=== PATIENT | male | born 1970 | race Caucasian/White ===

== ENCOUNTER 2020-03-22 04:15 | Emergency (ER) | payer OTHER, SELFPAY ==
[2020-03-22] VITALS (21 sets, daily range): BP systolic 112–136; BP diastolic 72–95; PULSE 73–79; RESP 16; TEMP 36.5; O2SAT 97–100; BMI 26.6
--- NOTE | 2020-03-22 04:38 | XRR_ITS ---
PROCEDURE INFORMATION: Exam: XR Chest, 1 View Exam date and time: 03/22/2020 4:43 AM Age: 50 years old Clinical indication: Other: Facial/arm tingling; Patient HX: Onset of right facial and bilateral upper extremity tingling this a. M. ; Additional info: Dizzy TECHNIQUE: Imaging protocol: XR of the chest Views: 1 view. COMPARISON: CR Chest 1 [place] [id number] 09/20/2017 1:06 PM FINDINGS: Lungs: Lungs are clear. Central interstitial markings are mildly prominent, similar to the findings in 2017. Pleural space: There is no pleural effusion or pneumothorax. Heart/Mediastinum: Cardiomediastinal contours are unremarkable. Bones/joints: Bones are unremarkable. XR/XR chest 1V portable [id number] IMPRESSION: No pathologic findings.
--- NOTE | 2020-03-22 04:38 | CTR_ITS ---
PROCEDURE INFORMATION: Exam: CT Head Without Contrast Exam date and time: 03/22/2020 4:43 AM Age: 50 years old Clinical indication: Weakness, extremity and weakness, facial; Patient HX: Onset of right sided facial and bilateral upper extremity tingling this a. M. ; Additional info: Symptoms of acute stroke TECHNIQUE: Imaging protocol: Computed tomography of the head without contrast. Total DLP: 787.91 mGy-cm Radiation optimization: All CT scans at this facility use at least one of these dose optimization techniques: automated exposure control; mA and/or kV adjustment per patient size (includes targeted exams where dose is matched to clinical indication); or iterative reconstruction. COMPARISON: No relevant prior studies available. FINDINGS: Brain: The brain is unremarkable. There is no mass effect or significant white matter disease. There is no acute intracranial hemorrhage. Ventricles: There is no significant ventricular dilation. The basal cisterns are unremarkable. Bones/joints: The calvarium is intact. Sinuses: The paranasal sinuses are clear. Mastoid air cells: The mastoid air cells are clear. Soft tissues: The visible extracranial soft tissues are unremarkable. CT/CT head wo con* [id number] IMPRESSION: No acute findings. Radiation Dose CTDIVOL = (mGy): DLP = 787.91 (mGy-cm)
--- NOTE | 2020-03-22 04:38 | ECG_ITS ---
Measurements Intervals [facility] Rate: 78 P: 69 NV: 190 QRS: 63 QRSD: 97 T: 55 QT: 360 QTc: 411 SINUS RHYTHM Compared to ECG 09/20/2017 16:07:43 No significant changes Electronically Signed On 03-22-2020 14:59:41 CDT by Bonnie Melendrez M.D. [email or web address]
--- NOTE | 2020-03-22 04:40 | ED_ITS ---
Documented by User: Didier Miguel DO 03/22/20 06:08 HPI - Neuro Symptoms/Deficit General: Chief Complaint: Neuro Symptoms/Deficit Stated Complaint: Face tingling/arm pain Time Seen by Provider: 03/22/20 04:30 History of Present Illness: HPI Narrative: 50-year-old healthy male presents with a 1 day history of paresthesias. Yesterday, he noted a tingling sensation to his bilateral face, and bilateral upper extremities. These seem to improve yesterday evening. He awoke fine this morning, and on his way to work, he began to get similar symptoms to the right side of his face and upper extremities. He is not weak. There is no language problem or deficit. There is no slurring of the speech. There is no vision change. He denies significant headache. Onset (ago): day(s) (1) Location: right face and right arm History of same: Yes Severity: mild Quality: tingling Relieving factors: none Exacerbating factors: none Context: sudden onset On Anticoagulants: No Associated symptoms: Reports vertigo and vomiting; Deny chest pain, fevers/chills, headache(s) or short of breath Review of Systems Const: Denies: fever or chills Eyes: Denies: change in vision or blurry vision ENMT: Denies: painful swallowing, swelling of lips/tongue or Change in hearing Card: Denies: chest pain Resp: Denies: shortness of breath, productive cough, non-productive cough or wheezing GI: Reports: vomiting : Denies: difficulty urinating or blood in urine Musc: Denies: neck pain, back pain, redness or joint warmth Skin/Breast: Denies: rash, itching or redness Neuro: Reports: vertigo; Denies: headache Psych: Denies: anxiety, visual hallucinations or auditory hallucinations PFSH ED PFSH: Social History Smoking and tobacco status: current every day smoker NIH stroke score NIHSS: Level Of Consciousness - 1a: 0 Level Of Consciousness Questions - 1b: Both Correct Level Of Consciousness Commands - 1c: Both Correct Best Gaze - 2: Normal Visual Wood - 3: No Visual Loss Facial Palsy - 4: Normal Motor Arm Right - 5: No Drift Motor Arm Left - 5: No Drift Motor Leg Right - 6: No Drift Motor Leg Left - 6: No Drift Limb Ataxia - 7: Absent Sensory - 8: Normal Best Language - 9: No Aphasia Dysarthia - 10: Normal Extinction And Inattention - 11: 0 Score: Total Score: 0 Physical Exam Const: COMMON NORMALS: oriented x3 GENERAL APPEARANCE: well developed ORIENTATION/CONSCIOUSNESS: Yes oriented to person, Yes oriented to place and Yes oriented to time HENMT: COMMON NORMALS: normocephalic, external ears normal and external nose normal HEAD & SCALP: normocephalic; no scalp tenderness FACE & SINUS: normal facial exam NOSE: external nose normal and no nasal discharge EXTERNAL EAR: Yes external ears normal MOUTH: tongue normal TEETH & GINGIVA: no abnormal tooth and associated gingiva THROAT: posterior oropharynx normal; no peritonsillar mass Eye: COMMON NORMALS: PERRL, EOMs intact bilaterally and conjunctivae normal EYELID: eyelids normal CONJUNCTIVA: Yes conjunctivae normal PUPIL: Yes PERRL Neck/C-Spine: COMMON NORMALS: full ROM GENERAL: No tracheal deviation CERVICAL SPINE: Yes normal cervical lordosis and No cervical spine tenderness Chest: COMMONS NORMALS: inspection of chest normal CHEST: No tenderness Resp: COMMON NORMALS: clear to auscultation bilaterally EFFORT & INSPECTION: No tachypneic, No respiratory distress, No retractions, No uses accessory muscles and No tracheal deviation AUSCULTATION: clear to auscultation bilaterally, no rhonchi, no wheezes and lung sounds not diminished Cardio: COMMON NORMALS: regular rate and regular rhythm RATE: regular rate RHYTHM: regular rhythm HEART SOUNDS: no murmurs PERIPHERAL PULSES: radial pulses present GI: INSPECTION: No abdominal distension AUSCULTATION: No hyperactive bowel sounds and No hypoactive bowel sounds PALPATION: No guarding and No rigid PERCUSSION: no dullness to percussion and no tympanic to percussion : COMMON NORMALS: Yes no CVA tenderness BLADDER/KIDNEY EXAM: Yes no CVA tenderness Back/Pelvis: COMMON NORMALS: no CVA tenderness Neuro: COMMON NORMALS: oriented x3 SENSORIUM/ORIENTATION: Yes oriented to person, Yes oriented to place and Yes oriented to time CRANIAL NERVES: Yes CN normal except as noted COORDINATION/BALANCE: [id number] test normal and [id number] test normal SPEECH: speech normal GAIT: Yes normal gait SENSORY EXAM: Yes double simultaneous stimulation for sensation normal MOTOR EXAM: no pronator drift and muscle tone normal throughout COORDINATION: [id number] test normal and [id number] test normal Psych: COMMON NORMALS: mental status grossly normal Skin: COMMON NORMALS: no rashes or lesions noted GENERAL SKIN EXAM: no rashes or lesions noted Course ED course: 50-year-old male with paresthesias to the right side of the face and upper extremity. His sensation exam is actually normal, and equal to the other side objectively. His NIH stroke scale is 0. His head CT and labs are pending. Update, head CT is negative. Chest x-ray is negative. Labs are still pending. The patient will be checked out to Dr. Norris for follow-up on laboratory results. Vital Signs: Vital signs: Vital Signs Temperature 97.7 F 03/22/20 04:20 Pulse Rate 73 03/22/20 07:05 Respiratory Rate 16 03/22/20 07:05 Blood Pressure 112/72 03/22/20 07:05 Pulse Oximetry 99 03/22/20 07:05 MDM - Neuro Symptoms/Deficit Lab Data: Labs: Lab Results 03/22/20 03/22/20 03/22/20 Range/Units 04:51 04:51 04:51 WBC 10.8 H (4.0-10.0) 10^3/ uL RBC 5.47 H (4.1-5.3) 10^6/u L Hgb 17.0 H (11.7-16.6) g/dL Hct 51.7 (42.0-52.0) % MCV 94.5 H (80-94) fL MCH 31.1 (28.0-34.0) pg MCHC 32.9 (30.0-36.0) g/dL RDW 13.0 (12.1-15.1) % Plt Count 353 (130-400) 10^3/c mm MPV 10.6 H (7.4-10.4) fL Neut % (Auto) 65.5 % Lymph % (Auto) 25.5 % [place] % (Auto) 7.7 % Eos % (Auto) 0.6 % Baso % (Auto) 0.5 % Neut # (Auto) 7.1 (1.8-7.7) 10^3/u L Lymph # (Auto) 2.8 (0.8-4.8) 10^3/u L [place] # (Auto) 0.8 (0.2-0.9) 10^3/u L Eos # (Auto) 0.1 (0.0-0.8) 10^3/u L Baso # (Auto) 0.1 (0.0-0.1) 10^3/u L Nucleated RBC % (a uto) 0 % Nucleated RBCs # 0.0 /100WBC PT 12.20 (10.5-13.3) SECO NDS INR 0.88 (0.8-1.2) APTT 30.6 (23.9-36.7) SECO NDS Sodium 137 (136-145) mmol/L Potassium 4.5 (3.5-5.1) mmol/L Chloride 99 (98-107) mmol/L Carbon Dioxide 25 (22-29) mmol/L Anion Gap 17.5 (5-19) BUN 15 (6-20) mg/dL Creatinine 0.9 (0.7-1.2) mg/dL GFR Calculation 88.6 L (90-130) mL/min Glucose 125 H (65-115) mg/dL Calculated Osmolal ity 282 L (285-295) mOsm/k g Calcium 10.2 (8.5-10.5) mg/dL Total Bilirubin 0.4 (0.15-1.2) mg/dL AST 19 (0-40) U/L ALT 14 (0-41) U/L Alkaline Phosphata se 97 (40-130) IU/L Total Protein 8.2 (6.6-8.7) g/dL Albumin 4.6 (3.5-5.2) g/dL Globulin 3.6 (1.3-4.6) g/dL Vitamin B12 280 (232-1245) pg/mL Folate (4.5-32.2) ng/mL Urine Color (Yellow) Urine Appearance (CLEAR) Urine pH (5-7) Ur Specific Gravit y (1.005-1.030) Urine Protein (Negative) Urine Glucose (UA) (Normal) Urine Ketones (Negative) Urine Blood (Negative) Urine Nitrate (Negative) Urine Bilirubin (NEGATIVE) Urine Urobilinogen (Negative) mg/dL Ur Leukocyte Lakisha ase (Negative) Urine RBC (0-2) /hpf Urine WBC (0-5) /hpf Ur Squamous Epith Cells (0-5) Amorphous Sediment Urine Bacteria (NONE) Ethyl Alcohol < 10 (0-10) mg/dL 03/22/20 03/22/20 Range/Units 04:51 05:30 WBC (4.0-10.0) 10^3/ uL RBC (4.1-5.3) 10^6/u L Hgb (11.7-16.6) g/dL Hct (42.0-52.0) % MCV (80-94) fL MCH (28.0-34.0) pg MCHC (30.0-36.0) g/dL RDW (12.1-15.1) % Plt Count (130-400) 10^3/c mm MPV (7.4-10.4) fL Neut % (Auto) % Lymph % (Auto) % [place] % (Auto) % Eos % (Auto) % Baso % (Auto) % Neut # (Auto) (1.8-7.7) 10^3/u L Lymph # (Auto) (0.8-4.8) 10^3/u L [place] # (Auto) (0.2-0.9) 10^3/u L Eos # (Auto) (0.0-0.8) 10^3/u L Baso # (Auto) (0.0-0.1) 10^3/u L Nucleated RBC % (a uto) % Nucleated RBCs # /100WBC PT (10.5-13.3) SECO NDS INR (0.8-1.2) APTT (23.9-36.7) SECO NDS Sodium (136-145) mmol/L Potassium (3.5-5.1) mmol/L Chloride (98-107) mmol/L Carbon Dioxide (22-29) mmol/L Anion Gap (5-19) BUN (6-20) mg/dL Creatinine (0.7-1.2) mg/dL GFR Calculation (90-130) mL/min Glucose (65-115) mg/dL Calculated Osmolal ity (285-295) mOsm/k g Calcium (8.5-10.5) mg/dL Total Bilirubin (0.15-1.2) mg/dL AST (0-40) U/L ALT (0-41) U/L Alkaline Phosphata se (40-130) IU/L Total Protein (6.6-8.7) g/dL Albumin (3.5-5.2) g/dL Globulin (1.3-4.6) g/dL Vitamin B12 (232-1245) pg/mL Folate 7.0 (4.5-32.2) ng/mL Urine Color Yellow (Yellow) Urine Appearance Cloudy (CLEAR) Urine pH 9 H (5-7) Ur Specific Gravit y 1.015 (1.005-1.030) Urine Protein Neg (Negative) Urine Glucose (UA) Norm (Normal) Urine Ketones Negative (Negative) Urine Blood Neg (Negative) Urine Nitrate Negative (Negative) Urine Bilirubin Neg (NEGATIVE) Urine Urobilinogen 1 H (Negative) mg/dL Ur Leukocyte Lakisha ase Negative (Negative) Urine RBC None (0-2) /hpf Urine WBC None (0-5) /hpf Ur Squamous Epith Cells None (0-5) Amorphous Sediment 2+ Urine Bacteria Trace (NONE) Ethyl Alcohol (0-10) mg/dL Discharge Plan Discharge Patient Disposition: Home, Self-Care Clinical Impression: Transient cerebral ischemia Condition: Stable Prescriptions: New Aspir-81 81 mg tablet,delayed release (DR/EC) 81 mg PO DAILY Qty: 30 RF: 0 Discharge Orders: Discharge Order (Routine); Ordered 03/22/20 Ordered By: Jose Norris Referrals: Ludmila Mendoza, UNIT CONTROL CLERK-C [Primary Care Provider] - Discharge Diet: Usual diet Discharge Activity: Increase activity as tolerated Activity Restrictions/Additional Instructions: Follow-up with your doctor for further evaluation return if you have any further problems or change of symptoms or worsening. Discharge Date/Time: 03/22/20 07:05 Sign Out Sign Out Data: Patient Sign Out occurred on 03/22/20 at 06:18. Patient's care was discussed, and care was transferred from to Jose Norris DO. Coding Level of Care Code ED Hotel Front Office Manager for g Fwd Exam Comprehensive Documented by User: Jose Norris DO 03/24/20 07:30 HPI - Neuro Symptoms/Deficit General: Chief Complaint: Neuro Symptoms/Deficit Stated Complaint: Face tingling/arm pain Time Seen by Provider: 03/22/20 04:30 [facility] ED PFSH: Social History Smoking and tobacco status: current every day smoker Course ED course: Symptoms completely resolved at this point he is feeling better. His CT head is negative. We will go ahead and discharge the patient with as anusha and have him follow-up with his primary care doctor for further evaluation including more advanced imaging such as MRI echo or carotid. Vital Signs: Vital signs: Vital Signs Temperature 97.7 F 03/22/20 04:20 Pulse Rate 73 03/22/20 07:05 Respiratory Rate 16 03/22/20 07:05 Blood Pressure 112/72 03/22/20 07:05 Pulse Oximetry 99 03/22/20 07:05 MDM - Neuro Symptoms/Deficit Lab Data: Labs: Lab Results 03/22/20 03/22/20 03/22/20 Range/Units 04:51 04:51 04:51 WBC 10.8 H (4.0-10.0) 10^3/ uL RBC 5.47 H (4.1-5.3) 10^6/u L Hgb 17.0 H (11.7-16.6) g/dL Hct 51.7 (42.0-52.0) % MCV 94.5 H (80-94) fL MCH 31.1 (28.0-34.0) pg MCHC 32.9 (30.0-36.0) g/dL RDW 13.0 (12.1-15.1) % Plt Count 353 (130-400) 10^3/c mm MPV 10.6 H (7.4-10.4) fL Neut % (Auto) 65.5 % Lymph % (Auto) 25.5 % [place] % (Auto) 7.7 % Eos % (Auto) 0.6 % Baso % (Auto) 0.5 % Neut # (Auto) 7.1 (1.8-7.7) 10^3/u L Lymph # (Auto) 2.8 (0.8-4.8) 10^3/u L [place] # (Auto) 0.8 (0.2-0.9) 10^3/u L Eos # (Auto) 0.1 (0.0-0.8) 10^3/u L Baso # (Auto) 0.1 (0.0-0.1) 10^3/u L Nucleated RBC % (a uto) 0 % Nucleated RBCs # 0.0 /100WBC PT 12.20 (10.5-13.3) SECO NDS INR 0.88 (0.8-1.2) APTT 30.6 (23.9-36.7) SECO NDS Sodium 137 (136-145) mmol/L Potassium 4.5 (3.5-5.1) mmol/L Chloride 99 (98-107) mmol/L Carbon Dioxide 25 (22-29) mmol/L Anion Gap 17.5 (5-19) BUN 15 (6-20) mg/dL Creatinine 0.9 (0.7-1.2) mg/dL GFR Calculation 88.6 L (90-130) mL/min Glucose 125 H (65-115) mg/dL Calculated Osmolal ity 282 L (285-295) mOsm/k g Calcium 10.2 (8.5-10.5) mg/dL Total Bilirubin 0.4 (0.15-1.2) mg/dL AST 19 (0-40) U/L ALT 14 (0-41) U/L Alkaline Phosphata se 97 (40-130) IU/L Total Protein 8.2 (6.6-8.7) g/dL Albumin 4.6 (3.5-5.2) g/dL Globulin 3.6 (1.3-4.6) g/dL Vitamin B12 280 (232-1245) pg/mL Folate (4.5-32.2) ng/mL Urine Color (Yellow) Urine Appearance (CLEAR) Urine pH (5-7) Ur Specific Gravit y (1.005-1.030) Urine Protein (Negative) Urine Glucose (UA) (Normal) Urine Ketones (Negative) Urine Blood (Negative) Urine Nitrate (Negative) Urine Bilirubin (NEGATIVE) Urine Urobilinogen (Negative) mg/dL Ur Leukocyte Lakisha ase (Negative) Urine RBC (0-2) /hpf Urine WBC (0-5) /hpf Ur Squamous Epith Cells (0-5) Amorphous Sediment Urine Bacteria (NONE) Ethyl Alcohol < 10 (0-10) mg/dL 03/22/20 03/22/20 Range/Units 04:51 05:30 WBC (4.0-10.0) 10^3/ uL RBC (4.1-5.3) 10^6/u L Hgb (11.7-16.6) g/dL Hct (42.0-52.0) % MCV (80-94) fL MCH (28.0-34.0) pg MCHC (30.0-36.0) g/dL RDW (12.1-15.1) % Plt Count (130-400) 10^3/c mm MPV (7.4-10.4) fL Neut % (Auto) % Lymph % (Auto) % [place] % (Auto) % Eos % (Auto) % Baso % (Auto) % Neut # (Auto) (1.8-7.7) 10^3/u L Lymph # (Auto) (0.8-4.8) 10^3/u L [place] # (Auto) (0.2-0.9) 10^3/u L Eos # (Auto) (0.0-0.8) 10^3/u L Baso # (Auto) (0.0-0.1) 10^3/u L Nucleated RBC % (a uto) % Nucleated RBCs # /100WBC PT (10.5-13.3) SECO NDS INR (0.8-1.2) APTT (23.9-36.7) SECO NDS Sodium (136-145) mmol/L Potassium (3.5-5.1) mmol/L Chloride (98-107) mmol/L Carbon Dioxide (22-29) mmol/L Anion Gap (5-19) BUN (6-20) mg/dL Creatinine (0.7-1.2) mg/dL GFR Calculation (90-130) mL/min Glucose (65-115) mg/dL Calculated Osmolal ity (285-295) mOsm/k g Calcium (8.5-10.5) mg/dL Total Bilirubin (0.15-1.2) mg/dL AST (0-40) U/L ALT (0-41) U/L Alkaline Phosphata se (40-130) IU/L Total Protein (6.6-8.7) g/dL Albumin (3.5-5.2) g/dL Globulin (1.3-4.6) g/dL Vitamin B12 (232-1245) pg/mL Folate 7.0 (4.5-32.2) ng/mL Urine Color Yellow (Yellow) Urine Appearance Cloudy (CLEAR) Urine pH 9 H (5-7) Ur Specific Gravit y 1.015 (1.005-1.030) Urine Protein Neg (Negative) Urine Glucose (UA) Norm (Normal) Urine Ketones Negative (Negative) Urine Blood Neg (Negative) Urine Nitrate Negative (Negative) Urine Bilirubin Neg (NEGATIVE) Urine Urobilinogen 1 H (Negative) mg/dL Ur Leukocyte Lakisha ase Negative (Negative) Urine RBC None (0-2) /hpf Urine WBC None (0-5) /hpf Ur Squamous Epith Cells None (0-5) Amorphous Sediment 2+ Urine Bacteria Trace (NONE) Ethyl Alcohol (0-10) mg/dL Discharge Plan Discharge Patient Disposition: Home, Self-Care Clinical Impression: Transient cerebral ischemia Condition: Stable Prescriptions: New Aspir-81 81 mg tablet,delayed release (DR/EC) 81 mg PO DAILY Qty: 30 RF: 0 Discharge Orders: Discharge Order (Routine); Ordered 03/22/20 Ordered By: Jose Norris Referrals: Ludmila Mendoza, UNIT CONTROL CLERK-C [Primary Care Provider] - Discharge Diet: Usual diet Discharge Activity: Increase activity as tolerated Activity Restrictions/Additional Instructions: Follow-up with your doctor for further evaluation return if you have any further problems or change of symptoms or worsening. Discharge Date/Time: 03/22/20 07:05 Sign Out Sign Out Data: Patient Sign Out occurred on 03/22/20 at 06:18. Patient's care was discussed, and care was transferred from to Jose Norris DO. Coding Level of Care Code ED Hotel Front Office Manager for g Fwd Exam Comprehensive
[2020-03-22 06:12] LABS: Basophils # 0.1 10^3/uL (0.0-0.1); Basophils % 0.5 %; Eosinophils # 0.1 10^3/uL (0.0-0.8); Eosinophils % 0.6 %; Hematocrit 51.7 % (42.0-52.0); Lymphocytes # 2.8 10^3/uL (0.8-4.8); Lymphocytes % 25.5 %; Mean Corpuscular HGB Conc 32.9 g/dL (30.0-36.0); Mean Corpuscular Hemoglobin 31.1 pg (28.0-34.0); Mean Corpuscular Volume 94.5 fL (80-94); Mean Platelet Volume 10.6 fL (7.4-10.4); Monocytes # 0.8 10^3/uL (0.2-0.9); Monocytes % 7.7 %; Neutrophils # 7.1 10^3/uL (1.8-7.7); Neutrophils % 65.5 %; Nucleated Red Blood Cells % 0 %; Platelet Count 353 10^3/cmm (130-400); Red Blood Count 5.47 10^6/uL (4.1-5.3); White Blood Count 10.8 10^3/uL (4.0-10.0)
[2020-03-22 06:22] LABS: INR 0.88 (0.8-1.2)
[2020-03-22 06:23] LABS: Partial Thromboplastin Time 30.6 SECONDS (23.9-36.7)
[2020-03-22 06:28] LABS: Alanine Aminotransferase 14 U/L (0-41); Albumin Level 4.6 g/dL (3.5-5.2); Alkaline Phosphatase 97 IU/L (40-130); Anion Gap 17.5 (5-19); Aspartate Amino Transferase 19 U/L (0-40); Blood Urea Nitrogen 15 mg/dL (6-20); Calcium 10.2 mg/dL (8.5-10.5); Carbon Dioxide 25 mmol/L (22-29); Chloride 99 mmol/L (98-107); Globulin 3.6 g/dL (1.3-4.6); Glomerular Filtration Rate 88.6 mL/min (90-130); Glucose 125 mg/dL (65-115); Osmolality Calculated 282 mOsm/kg (285-295); Potassium 4.5 mmol/L (3.5-5.1); Sodium 137 mmol/L (136-145); Total Bilirubin 0.4 mg/dL (0.15-1.2); Total Protein 8.2 g/dL (6.6-8.7)
[2020-03-22 06:32] LABS: Protein Urine Neg (Negative); Specific Gravity, Urine 1.015 (1.005-1.030); Urine Appearance Cloudy (CLEAR); Urine Color Yellow (Yellow); pH Urine 9 (5-7)
[2020-03-22 06:33] LABS: Add Urine Microscopic? YES; Bilirubin Urine Neg (NEGATIVE); Blood Urine Neg (Negative); Glucose Urine UA Norm (Normal); Ketones Urine Negative (Negative); Leukocyte Esterase Urine Negative (Negative); Nitrate Urine Negative (Negative); Urobilinogen Urine 1 mg/dL (Negative)
[2020-03-22 06:34] LABS: Add Urine Culture? No; Amorphous Sediment Urine 2+; Bacteria Urine TRACE
[2020-03-22 06:43] LABS: Vitamin B12 280 pg/mL (232-1245)
[2020-03-22 06:46] LABS: Alcohol Level < 10 mg/dL (0-10)
== END 2020-03-22 07:05 | disposition home or self-care (01) ==
PROVIDERS: Emergency Medicine; Emergency Provider Family Medicine; Family Provider Nurse Practitioner; PCP Nurse Practitioner
DX: G45.9 Transient cerebral ischemic attack, unspecified (principal); F17.210 Nicotine dependence, cigarettes, uncomplicated
CPT/HCPCS: 12345; 70450; 71045; 80053; 80307; 81001; 82607; 82746; 85025; 85610; 85730; 93005; 99283; 99284; A9270

== ENCOUNTER → 2020-03-25 10:29 | Outpatient (BNVA) | payer OTHER, SELFPAY | PROVIDERS: Family Provider Nurse Practitioner; PCP Nurse Practitioner; Visit Provider Nurse Practitioner | DX: G45.9 Transient cerebral ischemic attack, unspecified (principal); H81.312 Aural vertigo, left ear | CPT/HCPCS: 80061 ==

== ENCOUNTER 2020-04-17 13:10 | Outpatient (CLI) | payer OTHER, SELFPAY ==
--- NOTE | 2020-04-17 | USCV_ITS ---
Neo Reyes Age: 50 Gender: M : 1970 Exam Date: 04/17/2020 13:35 Ordering Phys: Ludmila Mendoza Technologist: Delon Huff Exam Location: [facility] [place] Indication: CHEST PAIN BP: 140 / 70 HR: 77 Rhythm: Sinus Technical Quality: Good MEASUREMENTS (Male / Female) Normal Values 2D ECHO LV Diastolic Diameter PLAX 4.3 cm 4.2 - 5.9 / 3.9 - 5.3 cm LV Systolic Diameter PLAX 2.6 cm IVS Diastolic Thickness 1.0 cm 0.6 - 1.0 / 0.6 - 0.9 cm IVS Systolic Thickness 1.2 cm LVPW Diastolic Thickness 1.1 cm 0.6 - 1.0 / 0.6 - 0.9 cm LVPW Systolic Thickness 1.2 cm LVOT Diameter 2.0 cm LV Ejection Fraction 2D Teich 71.0 % LV Ejection Fraction MOD 2C 66.0 % LV Ejection Fraction 2C AL 65.4 % LA Diameter 3.8 cm LA Width 4.3 cm LA Height 5.7 cm RA Width 4.2 cm RA Height 4.2 cm Aorta at Sinotubular Diameter 2.7 cm M-MODE LV Diastolic Diameter MM 4.6 cm 4.2 - 5.9 / 3.9 - 5.3 cm LV Systolic Diameter MM 3.5 cm LV Ejection Fraction MM Teich 48.9 % IVS Diastolic Thickness MM 1.1 cm 0.6 - 1.0 / 0.6 - 0.9 cm IVS Systolic Thickness MM 1.6 cm LVPW Diastolic Thickness MM 1.2 cm 0.6 - 1.0 / 0.6 - 0.9 cm LVPW Systolic Thickness MM 1.8 cm RV Diastolic Diameter MM 1.7 cm Aortic Annulus Diameter 3.2 cm LA Ao Ratio MM 1.2 MV E Point Septal Separation 1.5 cm DOPPLER AV Peak Velocity 132.0 cm/s LVOT Peak Velocity 116.0 cm/s AV Area Cont Eq vti 2.5 cm squared AV Area Cont Eq pk 2.9 cm squared MV Area PHT 5.0 cm squared Mitral E to A Ratio 1.0 MV E' Velocity 17.0 cm/s Mitral E to MV E' Ratio 4.9 Mitral E to LV E' Lateral Ratio 4.3 Mitral E to LV E' Septal Ratio 5.5 TR Peak Velocity 179.0 cm/s TR Peak Gradient 12.9 mmHg TV Peak E Velocity 105.0 cm/s Right Atrial Pressure 3.0 mmHg Pulmonary Artery Systolic Pressu 15.8 mmHg FINDINGS Left Ventricle Normal left ventricular size and systolic function, EF 68 %. Mild left ventricular hypertrophy. No regional wall motion abnormalities. Right Ventricle Normal right ventricular size and systolic function. Right Atrium Normal right atrial size. Left Atrium Normal left atrial size. Mitral Valve No gross abnormalities noted Aortic Valve No gross abnormalities noted Tricuspid Valve No gross abnormalities noted Pulmonic Valve Structurally normal pulmonic valve without significant stenosis. There is no pulmonic regurgitation. Pericardium Normal pericardium without effusion. Aorta Normal aortic annulus size. CONCLUSIONS Normal left ventricular size and systolic function, EF 68 %. Mild left ventricular hypertrophy. No regional wall motion abnormalities. No significant stenotic valvular lesions. Normal chamber sizes. There is no pericardial effusion. There are no intracardiac masses. No previous study is available for comparison. Dr Bonnie Melendrez MD [facility] (Electronically Signed) Final Date: 17 Apr 2020 19:36 S
--- NOTE | 2020-04-17 13:30 | USCV_ITS ---
Neo Reyes Age: 50 Gender: M : 1970 Exam Date: 04/17/2020 13:13 Ordering Phys: Ludmila Mendoza Technologist: Delon Huff Exam Location: [facility] [place] Indication: BRUIT Risk Factors: Previous Vascular Surgery: Right Brachial BP: / Left Brachial BP: / Right Left Velocity (cm/s) Spectral Plaque Velocity (cm/s) Spectral Plaque Syst/Diast Broadening Syst/Diast Broadening 118.00/28.70 Prox CCA 118.00/ 24.30 115.80/33.10 Mid CCA 104.70/ 29.80 112.50/25.40 Distal CCA 123.50/ 23.20 111.40/29.80 Hetro Prox ICA 112.50/ 26.50 Hetro 91.50/ 27.60 Mid ICA 119.60/ 42.10 104.70/39.70 Distal ICA 122.30/ 46.00 90.40 ECA 84.90 0.94 ICA/CCA 0.99 Antegrade Vertebral Antegrade 54.00/ 12.10 cm/s 64.40/ 18.40 cm/s Tri Subclavian Tri 140.0 134.1 0 0 FINDINGS Minimal plaques at the bifurcations bilaterally. Intimal thickening in the common carotid arteries bilaterally. Antegrade flow in the vertebral arteries bilaterally. Normal Doppler flow velocities in the external CONCLUSIONS Minimal plaques at the bifurcations bilaterally. Intimal thickening in the common carotid arteries bilaterally. No significant stenosis, based on the above finding Dr Bonnie Melendrez MD [facility] (Electronically Signed) Final Date: 18 Apr 2020 13:59 S
== END 2020-04-17 13:11 | disposition home or self-care (01) ==
LOC: RAD 13:10
PROVIDERS: PCP Nurse Practitioner; Visit Provider Nurse Practitioner
DX: G45.9 Transient cerebral ischemic attack, unspecified (principal); R07.9 Chest pain, unspecified
CPT/HCPCS: 93306; 93880